=== PATIENT | male | born 1985 | race Caucasian/White ===

== ENCOUNTER 2022-11-06 09:24 | Outpatient (CLI) | payer BC, OTHER, SELFPAY | END 2022-11-06 09:25 | disposition home or self-care (01) | PROVIDERS: PCP Family Medicine; Referring Provider Family Medicine; Visit Provider Family Medicine | DX: E78.5 Hyperlipidemia, unspecified (principal); I10 Essential (primary) hypertension | CPT/HCPCS: 80053; 80061 ==

== ENCOUNTER 2023-03-18 17:56 | Outpatient (CLI) | payer OTHER, BC, SELFPAY | END 2023-03-18 17:57 | disposition home or self-care (01) | LOC: AMB 03-23 10:35 | PROVIDERS: PCP Family Medicine; Visit Provider Student in an Organized Health Care Education/Training Program | DX: S29.9XXA Unspecified injury of thorax, initial encounter (principal); R41.82 Altered mental status, unspecified; V69.40XA Driver of heavy transport vehicle injured in collision with unspecified motor vehicles in traffic accident, initial encounter; Y92.410 Unspecified street and highway as the place of occurrence of the external cause | CPT/HCPCS: A0425; A0433 ==

== ENCOUNTER 2023-05-28 16:00 | Outpatient (RCR) | payer BC, OTHER, SELFPAY ==
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
== END 2023-08-06 17:09 | disposition home or self-care (01) ==
PROVIDERS: PCP Family Medicine; Visit Provider Physical Medicine & Rehabilitation
DX: S06.9X9D Unspecified intracranial injury with loss of consciousness of unspecified duration, subsequent encounter (principal); T07.XXXA Unspecified multiple injuries, initial encounter; M25.512 Pain in left shoulder; M25.612 Stiffness of left shoulder, not elsewhere classified; M62.81 Muscle weakness (generalized); R26.81 Unsteadiness on feet; R41.89 Other symptoms and signs involving cognitive functions and awareness; R07.82 Intercostal pain; Z51.89 Encounter for other specified aftercare
CPT/HCPCS: 92523; 97110; 97112; 97163; 97164; 97167

== ENCOUNTER 2023-09-08 14:32 | Outpatient (CLI) | payer BC, OTHER, SELFPAY | END 2023-09-08 14:33 | disposition home or self-care (01) | PROVIDERS: PCP Family Medicine; Visit Provider Family Medicine | DX: E78.5 Hyperlipidemia, unspecified (principal); I10 Essential (primary) hypertension | CPT/HCPCS: 80053; 80061 ==

== ENCOUNTER 2025-04-05 09:33 | Outpatient (CLI) | payer BC, OTHER, SELFPAY | END 2025-04-05 09:34 | disposition home or self-care (01) | LOC: NFLDREF 04-13 13:29 | PROVIDERS: PCP Family Medicine; Referring Provider Family Medicine; Visit Provider Family Medicine | DX: I10 Essential (primary) hypertension (principal); E78.5 Hyperlipidemia, unspecified; R79.89 Other specified abnormal findings of blood chemistry | CPT/HCPCS: 80053; 80061; 86803 ==